=== PATIENT | male | born 1985 | race Caucasian/White ===

== ENCOUNTER 2019-01-25 12:51 | Emergency (ER) | payer BC ==
[2019-01-25] MEDS ORDERED: NS 0.9% 1000 ML** 1,000 ML IV SCH (13:00)
[2019-01-25 13:56] LABS: ABS Eosinophils 0.1 10^3/ul (0-0.6); ABS Lymphocytes 1.4 10^3/ul (1.0-4.8); ABS Monocytes 0.5 10^3/ul (0-0.8); ABS Neutrophils 5.4 10^3/ul (1.5-7.7); Eosinophil % 0.8 %; Hematocrit 43 % (42-52); Hemoglobin 14.6 g/dL (14.0-18.0); Lymphocyte % 18.7 %; Mean Corpuscular HGB Conc 34 g/dL (31-36); Mean Corpuscular Hemoglobin 30 pg (27-31); Mean Corpuscular Volume 88 fL (80-94); Mean Platelet Volume 8.2 fL (7.4-10.4); Nucleated Red Blood Cells % 0.1; Platelet Count 174 10^3/uL (150-450); Red Cell Distribution Width 13 % (10.5-15); White Blood Count 7.4 10^3/uL (3.5-10.8)
--- NOTE | 2019-01-25 14:06 | ED ---
Dizziness - HPI Summary HPI Summary: Pt is a 33 y/o M presenting to the ED with a chief complaint of weakness and paresthesia first onset a couple of days ago. He reports paresthesia in his LUE , LLE, and L chest wall/abd/back. The pt was dxed with MS the last time that he had similar symptoms, but this episode is much worse. The severity of his sx waxes and wanes, and it is described as heaviness, numbness, and paresthesia. Pt denies chest pain, sob. No n/v/d. no cortes, vision changes. Pt is urrently is not taking any prescribed medication for his MS - just turmeric supplements, and uses marijuana from the same supplier to treat his associated pain. Pt is not concerned his symptoms related to marijuana batch. He also notes he had some pain with pruritus on the back of his neck around , and thinks that it may be connected to his current sx. No visible rash. No trauma. Pt discussed with his neurologist who sent him to ED for an MRI head/neck. If consistent with MS flare, lorenza start steroid treatment. He has had an MRI done before, and states that he did not have a reaction to the contrast he was given. Pt's medications reviewed this visit. - History Of Current Complaint Chief Complaint: EDGeneral Stated Complaint: MRI/LEFT SIDE ISNT WORKING PER PT Time Seen by Provider: 01/25/19 12:53 Hx Obtained From: Patient, Medical Records, Other: - Dr. Bowling, Arnold Peñaloza, ZENAIDA Onset/Duration: Still Present, Gradually Timing: Constant Severity Initially: Moderate Severity Currently: Moderate Character: Weak Aggravating Factor(s): Nothing Alleviating Factor(s): Nothing Associated Signs And Symptoms: Positive: Negative - Allergies/Home Medications Allergies/Adverse Reactions: Allergies Allergy/AdvReac Type Severity Reaction Status Date / Time No Known Allergies Allergy Verified 01/25/19 12:57 Home Medications: Home Medications NK [No Home Medications Reported] 01/25/19 [History Confirmed 01/25/19] PMH/Surg Hx/FS Hx/Imm Hx Previously Healthy: No Endocrine/Hematology History: Denies: Hx Diabetes Cardiovascular History: Denies: Hx Hypertension, Hx Pacemaker/ICD History: Denies: Hx Renal Disease Sensory History: Denies: Hx Hearing Aid Neurological History: Reports: Other Neuro Impairments/Disorders - multiple sclerosis Psychiatric History: Denies: Hx Panic Disorder - Surgical History Surgery Procedure, Year, and Place: DOUBLE INGUINAL HERNIA. 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 EOM intact and full ENT: Hearing grossly normal TM x 2 clear, mmoist, uvula midline, no exudate, no erythema Neck: Positive: Supple Respiratory: Positive: No respiratory distress, No accessory muscle use + CTA throughout no w/r Cardiovascular: RRR nl s1, s2 no m/r CBT <2 sec abd soft + BS nt/nd no guarding, no distension Musculoskeletal Exam: Full AROM C spine no pain spinous process c/t/l/s + SLE b /l + abduct shoulders flex/ext elbow pt with 4+5 grasp left Neurological: Positive: Alert, + sensation throughout but reports decreased sensation circumferential LUE, left anterior chest wall midclavicular line to umbilicus and toes b/l feet Psychological: Positive: Normal Response To Family Skin: Positive: no rash, no ecchymosis Triage Information Reviewed: Yes Vital Signs On Initial Exam: Initial Vitals Temp Pulse Resp BP Pulse Ox 98.9 F 78 22 160/90 99 01/25/19 12:54 01/25/19 12:54 01/25/19 12:54 01/25/19 12:54 01/25/19 12:54 Vital Signs Reviewed: Yes Diagnostics - Vital Signs Vital Signs Temp Pulse Resp BP Pulse Ox 01/25/19 12:54 98.9 F 78 22 160/90 99 - Laboratory Lab Results: Lab Results 01/25/19 Range/Units 13:42 WBC 7.4 (3.5-10.8) 10^3/uL RBC 4.90 (4.18-5.48) 10^6 /uL Hgb 14.6 (14.0-18.0) g/dL Hct 43 (42-52) % MCV 88 (80-94) fL MCH 30 (27-31) pg MCHC 34 (31-36) g/dL RDW 13 (10.5-15) % Plt Count 174 (150-450) 10^3/uL MPV 8.2 (7.4-10.4) fL Neut % (Auto) 73.1 % Lymph % (Auto) 18.7 % [place] % (Auto) 7.1 % Eos % (Auto) 0.8 % Baso % (Auto) 0.3 % Absolute Neuts (auto) 5.4 (1.5-7.7) 10^3/ul Absolute Lymphs (auto) 1.4 (1.0-4.8) 10^3/ul Absolute Monos (auto) 0.5 (0-0.8) 10^3/ul Absolute Eos (auto) 0.1 (0-0.6) 10^3/ul Absolute Basos (auto) 0.0 (0-0.2) 10^3/ul Absolute Nucleated RBC 0.0 10^3/ul Nucleated RBC % 0.1 Result Diagrams: 01/25/19 13:42 01/25/19 13:42 Lab Statement: Any lab studies that have been ordered have been reviewed, and results considered in the medical decision making process. - Radiology C-spine MRI Radiology Interpretation Completed By: Radiologist Summary of Radiographic Findings: MULTIPLE LESIONS OF THE CERVICAL CORD CONSISTENT WITH DEMYELINATING PLAQUE GIVEN THE HISTORY OF MULTIPLE SCLEROSIS. THERE IS MINIMAL ENHANCEMENT OF THE LESION OPPOSITE OF C2 CONSISTENT WITH ACTIVE INFLAMMATION. ED physician has reviewed this report. Brain MRI Radiology Interpretation Completed By: Radiologist Summary of Radiographic Findings: 1. AGAIN NOTED ARE MULTIPLE WHITE MATTER LESIONS MOST CONSISTENT WITH DEMYELINATING PLAQUE GIVEN THE HISTORY OF MULTIPLE SCLEROSIS. 2. THERE HAS BEEN MIXED RESPONSE COMPARED TO THE JULY 28, 2017 EXAMINATION WITH INTERVAL DECREASE IN SIZE OF SOME LESIONS AND NEW LESIONS NOTED. 3. THERE IS A SMALL ENHANCING LESION OF THE LEFT POSTERIOR FRONTAL VALERO RADIATA CONSISTENT WITH AN AREA OF ACTIVE INFLAMMATION. ED physician has reviewed this report. Re-Evaluation - Re-Evaluation First Eval Comment: Dr. Bowling and Arnold Peñaloza NP reviewed MRI with pt. will gove dose 1000mg solumedrol now. neuro to arrage dose and Wed. pt comfortable and in agreement with plan Dizzy Course/Dx - Course Course Of Treatment: Pt with a history of MS - takes OTC tumeric. Pt here with 4 days progressive paresthesia chest, lue and toes. Pt also with paresthesia toes. Pt reports this was how is MS inital presentation. Pt sent from neurology for MRI head and neck with and without - to determine initiation of steroids. Pt and spouse stat understanding - aware will be delay pending MRI availability - Diagnoses Provider Diagnoses: Multiple sclerosis exacerbation Discharge - Sign-Out/Discharge Documenting (check all that apply): Patient Departure Patient Received Moderate/Deep Sedation with Procedure: No - Discharge Plan Condition: Stable Disposition: HOME Patient Education Materials: Multiple Sclerosis (DC) Referrals: John Bowling MD [Medical Doctor] - Additional Instructions: - You were given your first dose of solumedrol (steroid) today. The neurology department will contact your tomorrow for scheduled infusions on and Wednesday. These will be done at the infusion center - located at the hospital campus. Please CONFIRM this tomorrow when you discuss the appointment time with the office Contact the neurology office - there will be someone audio visual production specialist through the night - with any questions or concerns - Billing Disposition and Condition Condition: STABLE Disposition: Home - Attestation Statements Document Initiated by Rhea: Yes Documenting Scribe: Floridalma Ennis Provider For Whom Rhea is Documenting (Include Credential): Sandra Cloud MD. Scribe Attestation: IFloridalma, scribed for Sandra Cloud MD. on 01/25/19 at 1658. Scribe Documentation Reviewed: Yes Provider Attestation: The documentation as recorded by the Floridalma lincoln accurately reflects the service I personally performed and the decisions made by me, Sandra Cloud MD. Status of Scribe Document: Viewed Consult Consult: [id number] - I spoke with Dr. Bowling and Arnold Peñaloza NP, who recommended giving the patient 1mg of Solumedrol and discharging him to follow up with them in outpatient.
[2019-01-25 14:11] LABS: BUN/Creatinine Ratio 17.4 (8-20); Calcium 9.7 mg/dL (8.6-10.3); EGFR African American 83.6 (>60); EGFR Non-African American 69.1 (>60); Potassium 3.9 mmol/L (3.5-5.0)
[2019-01-25] MEDS ORDERED: Gadoteridol* (CONTRAST) 279.3 MG/ML 10 ML IV ONE (14:47)
[2019-01-25] MEDS ORDERED: methylPREDNISolone SOD SUCC* 1000 MG ML VIAL IVPB ONE (16:02)
[2019-01-25] MEDS ORDERED: methylPREDNISolone SOD SUCC* 1,000 MG in NS 0.9% 250 ML* 250 ML IVPB ONE (16:30)
[2019-01-25 18:12] VITALS: BP 129/78
--- NOTE | 2019-01-25 20:03 | CONS ---
CONSULTATION REPORT: DATE OF CONSULT: 01/25/19 - EMERGENCY DEPT REQUESTING PHYSICIAN IN CONSULT: Dr. Sandra Cloud. MY ATTENDING PHYSICIAN: Dr. Sukhdeep Bowling (report being dictated by Arnold Peñaloza NP) REASON FOR NEUROLOGICAL CONSULTATION: 1. Paresthesias. 2. Multiple sclerosis. HISTORY OF PRESENT ILLNESS: Mr. Rosenberg is a 33-year-old male patient who was seen in the clinic by Dr. Bowling for MS. He has a history of relapsing, remitting MS. He is currently not on medications for this. He has been trying tumeric. He states that last week on Wednesday he noted that he moved 60 tons of stone, and afterwards it was noted that he was having weakness starting in his left hand and radiating up into his left shoulder. He noted that his left arm and his entire left side of his body was weak in the sense that he had decreased sensation. He noticed that if he tried to run or walk fast that he was having a hard time with his left side. It was also noted that he has been having worsening fatigue. In addition to this, the had reported to our triage nurses that he had been having difficulty with cognition and troubled speech at times. In addition to this, he had some numbness on his right side, but it was not nearly as bad on the left. He had actually originally called our office. Because there was concern of an MS flare, he was deferred to the ER given the fact that his symptoms have been going on for about 5 days now. The window was closing on when we can give him IV steroids for the flare. He was sent to the ER. He underwent MRI imaging and it was noted that he did have 1 active enhancing lesion in the brain and he had a minimally enhancing lesion in his cervical spine with progression of disease. Because of this, we were asked to evaluate in consult. He did admit to having some blurred vision, but no loss of vision, no double vision. No facial drooping. PAST MEDICAL HISTORY: Significant for MS. PAST SURGICAL HISTORY: Denied. MEDICATIONS: Home meds: No medications reported. ALLERGIES TO MEDICATIONS: Include no known drug allergies. FAMILY HISTORY: Reviewed and noncontributory. SOCIAL HISTORY: Not a smoker. He is not a drinker. 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 REVIEW OF SYSTEMS: There is no documented fever. He denied having any significant weight change. No double vision. No ear discharge. There was no rhinorrhea. No sore throat. No thyroid enlargement. Denied any chest pain. There is no orthopnea. No nocturnal dyspnea. There was no abdominal pain. No nausea, no vomiting. No dysuria, no frequency. No seizure. There was no loss of consciousness. No pruritus and no skin ulcerations. Review of 14 systems completed, all others are negative. PHYSICAL EXAM: Vital Signs: Initial blood pressure 160/90, pulse 78, respirations 20, O2 sat 99%, temperature 98.9. General: At this time, Mr. Rosenberg is a 33-year- old male patient, appears to be well nourished, well developed, he is sitting in the ER stretcher, he does not appear to be in any acute distress. HEENT: Head: Atraumatic. Eyes: Sclerae anicteric and not pale. Neck was supple. Throat: Oral mucosa appears to be moist. No oropharyngeal erythema. Heart: Sounds S1, S2. Abdomen: Soft, flat. Bowel sounds present. Extremities: Pulses 2+ throughout. He is moving all 4 extremities against gravity. Neurologically, he is awake, he is alert, he is oriented x3. His speech was clear. Tongue was midline. No facial drooping. He did have decreased sensation to light touch on the left face, left upper extremity, and left lower extremity. He had brisk reflexes to the patella bilaterally. It was 3+. They were equal. He had 2+ reflexes to the biceps. Gait, again it was noted that he had subtle unsteady gait. He did appear to be not picking his left leg up as well as the right. He was slightly ataxic. He had a slight pronator drift. No other gross focal deficits were noted. His skin was intact. DIAGNOSTIC STUDIES/LAB DATA: Labs: WBC 7.4, RBC of 4.90, hemoglobin of 14.6, hematocrit of 43, platelet count of 174,000. Sodium 138, potassium 3.9, chloride of 106, bicarb 26, BUN 21, creatinine 1.21, glucose 100. He did have a brain MRI obtained today, which showed again noted are white matter lesions consistent with demyelinating plaque given the history. There has been mixed response compared to 07/28/18 exam with interval decrease in the size of some of the lesions and new lesions noted. There is a small enhancing lesion in the left posterior frontal paz radiata consistent with an area of active inflammation. Cervical spine MRI showed multiple lesions of the cervical cord consistent with demyelinating plaque given the history. There is minimal enhancement of the lesion opposite of C2 consistent with active inflammation. Old medical records were reviewed. ASSESSMENT AND PLAN: Mr. Rosenberg is a 33-year-old male patient who presented to the ER today with signs of an active multiple sclerosis flare. He was evaluated by myself and Dr. Bowling down in the ER after having imaging. At this point, imaging did confirm the multiple sclerosis flare. The plan at this point is for: 1. Multiple sclerosis. At this point, we had a discussion, which we will continue in the outpatient clinic. He is to be seen back on 02/07/19. We had a discussion about continuing long-term management. He understands that going forward, he will need to be placed on either one of the interferons, possibly Copaxone or one of the disease modifying agents, but again we will discuss this when the flare is resolving. Going forward more acutely, we will start him on IV Solu-Medrol 1000 mg daily for 3 days. He will get a dose here today in the ER. The plan, I touch base with our nursing staff in the office and they will be setting up outpatient infusions for the next 2 days of 1 g of Solu-Medrol tomorrow and 1 on Wednesday and we will see him back in clinic on 02/07/19. He knows to call us with any new or worrisome symptoms or any progression or worsening of his flare. I did explain to him as did Dr. Bowling that the Solu- Medrol will shorten the flare duration; however, will not stop it. He is aware of this. I will see him back clinically in the clinic and again we will discuss further options [facility] in terms of his multiple sclerosis. Again, I did discuss the case with Dr. Bowling today, he was in agreement and again , Dr. Bowling was present for the evaluation of the patient as well. ARNOLD PEÑALOZA, ZENAIDA [id number]/[facility] #: [id number] [facility]
== END 2019-01-25 18:11 | disposition home or self-care (01) ==
LOC: ED 12:51
DX: G35 Multiple sclerosis (principal)
CPT/HCPCS: 36415; 70553; 72156; 80048; 83735; 85025; 96361; 96365; 96375; 99282; A9579; J2930